=== PATIENT | male | born 1955 | race Caucasian/White ===

== ENCOUNTER 2021-10-15 19:40 | Inpatient (IN) | payer OTHER ==
[2021-10-15] MEDS ORDERED: AZITHROMYCIN 500 MG INJ IVPB ONE (20:33)
[2021-10-15] MEDS ORDERED: CEFTRIAXONE 1000 MG/VIAL ONE (20:33)
[2021-10-15] MEDS ORDERED: ALBUTEROL 2.5 MG/3 ML NEB SOL ONE (20:33)
[2021-10-15] MEDS ORDERED: NA CHLORIDE 0.9% 250 ML ONE (20:33)
[2021-10-15] MEDS ORDERED: METHYLPREDNISOLONE 125 MG INJ ONE (20:33)
[2021-10-15] MEDS ORDERED: NA CHLORIDE 0.9% 50 ML ONE (20:34)
[2021-10-15] MEDS ORDERED: FAMOTIDINE 20 MG/2 ML VIAL IV ONE (20:34)
[2021-10-15 20:42] LABS: Absolute Lymphocytes (CBC) 1.8 K/uL (0.7-4.9); Basophils % 0.5 % (0-1.3); Lymphocytes % 15.3 % (15.3-44.8); MPV 7.2 fL (7.6-11.3); RBC Red Blood Cell Count 4.71 M/uL (4.33-5.43)
[2021-10-15 20:51] LABS: Protime INR 1.17
--- NOTE | 2021-10-15 20:56 | RAD REPORT ---
EXAM DESCRIPTION: RAD - Chest Single View - 10/15/2021 8:35 pm CLINICAL HISTORY: COUGH COMPARISON: January 2008 TECHNIQUE: AP portable chest image was obtained 10/15/2021 8:35 pm . FINDINGS: Lung volumes are low. Interstitial pattern not clearly different from comparison. Minimal linear stranding in each base believed to be shallow inspiration atelectasis. Failure and volume over load are not seen. Heart and vasculature are normal. No measurable pleural effusion and no pneumothorax. No acute bony abnormality seen. No acute aortic findings suspected. IMPRESSION: No acute cardiopulmonary process.
[2021-10-15 21:02] LABS: ALT/SGPT 59 U/L (12-78); AST/SGOT 42 U/L (15-37); Albumin 3.3 g/dL (3.4-5.0); Alkaline Phosphatase 88 U/L (45-117); BUN Blood Urea Nitrogen 17 mg/dL (7-18); Bicarbonate 28 mmol/L (21-32); Bilirubin Direct 0.1 mg/dL (0-0.2); Bilirubin Total 0.4 mg/dL (0.2-1.0); Glucose Level 161 mg/dL (74-106); Magnesium 1.9 mg/dL (1.8-2.4); NT PRO-BNP 96 pg/mL (<125); Potassium 3.3 mmol/L (3.5-5.1); Protein, Total 7.5 g/dL (6.4-8.2); Sodium Level 138 mmol/L (136-145); Troponin (Emerg Dept Use Only) < 0.02 ng/mL (0.0-0.045)
--- NOTE | 2021-10-15 21:13 | ER ---
Nurse's Notes [facility] Name: Estrada Velasco Age: 66 yrs Sex: Male : 1955 Arrival Date: 10/15/2021 Time: 19:44 Bed 4 Private MD: Diagnosis: Acute bronchitis, unspecified;Acute bronchospasm;Obesity, unspecified;Hypoxemia;Hypokalemia Presentation: 10/15 20:07 Chief complaint: Patient states: he has had a cough x 1 week and hasn't been able to bb sleep x 3 days. Coronavirus screen: At this time, the client does not indicate any symptoms associated with coronavirus-19. Ebola Screen: No symptoms or risks identified at this time. Initial Sepsis Screen: Does the patient meet any 2 criteria? No. Patient's initial sepsis screen is negative. Does the patient have a suspected source of infection? No. Patient's initial sepsis screen is negative. Risk Assessment: Do you want to hurt yourself or someone else? Patient reports no desire to harm self or others. Onset of symptoms was September 2021. 20:07 Method Of Arrival: Ambulatory bb 20:07 Acuity: ELANA 3 bb Historical: - Allergies: 20:09 No Known Allergies; bb - Home Meds: 20:09 Hydrochlorothiazide Oral [Active]; losartan oral [Active]; bb - PMHx: 20:09 Hypertensive disorder; bb - PSHx: 20:09 foot surgery; elbow surgery; knee surgery; shoulder surgery; bb - Immunization history:: Adult Immunizations Client reports receiving the 2nd dose of the Covid vaccine. - Social history:: Smoking status: Patient denies any tobacco usage or history of. Patient uses alcohol, but reports only rare drinking. - Family history:: not pertinent. Screenin/02 19:58 Abuse screen: Denies threats or abuse. cc4 10/15 19:58 Nutritional screening: No deficits noted. Tuberculosis screening: No symptoms or risk cc4 factors identified. Fall Risk None identified. Assessment: 20:14 General: Appears in no apparent distress. uncomfortable, Behavior is calm, cooperative. as6 Pain: Complains of pain in rib. Neuro: Level of Consciousness is awake, alert, obeys commands, Oriented to person, place, time, situation. Cardiovascular: Capillary refill < 3 seconds Patient's skin is warm and dry. Respiratory: Reports cough that is hacking, persistent Airway is patent Trachea midline Respiratory effort is even, unlabored, Respiratory pattern is regular, symmetrical, Breath sounds with crackles bilaterally. Derm: Skin is intact, is healthy with good turgor. Vital Signs: 20:07 BP 141 / 66; Pulse 87; Resp 22 S; Temp 98.3(O); Pulse Ox 94% on R/A; Weight 127.01 kg bb (R); Height 6 ft. 0 in. (182.88 cm) (R); Pain 0/10; 21:00 BP 146 / 102; Pulse 88; Resp 20 S; Pulse Ox 98% on 2 lpm NC; as6 22:00 BP 141 / 94; Pulse 86; Resp 20 S; Pulse Ox 96% on 2 lpm NC; as6 23:00 BP 138 / 87; Pulse 85; Resp 18 S; Pulse Ox 100% on R/A; as6 12 00:23 BP 140 / 80; Pulse 83; Resp 20; Temp 98.6; Pulse Ox 95% on 2 lpm NC; cc4 10/15 20:07 Body Mass Index 37.97 (127.01 kg, 182.88 cm) bb ED Course: 10/15 19:44 Patient arrived in ED. es 19:55 Heron Handy MD is Attending Physician. jazmine 19:58 Placed in gown. Bed in low position. Call light in reach. Side rails up X2. Cardiac cc4 monitor on. Pulse ox on. NIBP on. 20:09 Triage completed. bb 20:09 Arm band placed on Patient placed in an exam room, on a stretcher, on media monitor, bb on pulse oximetry. Family accompanied patient. 20:25 Inserted saline lock: 20 gauge in right antecubital area, using aseptic technique. lt3 20:30 COVID swab sent to lab. Flu and/or RSV swab sent to lab. lt3 20:32 Initial lab(s) drawn, by mo, sent to lab. lt3 20:43 EKG done, by ED staff, reviewed by Heron Handy MD. lt3 21:00 Inserted saline lock: 18 gauge in left antecubital area, using aseptic technique. as6 21:10 Jesus Romero MD is Hospitalizing Provider. jazmine 21:35 Second set of blood cultures drawn by mo. lt3 23:24 Cadence Walsh, RN is Primary Nurse. cc4 23:28 Respiratory Syncytial Virus Ag Sent. cc4 23:28 Influenza Screen (A Sent. cc4 23:28 RSV Sent. cc4 23:28 Influenza Screen (a \\T\\ B) Sent. cc4 23:28 SARS-COV-2 RT PCR (Document "Date of Onset" if Symptomatic) Sent. cc4 23:28 Blood Culture Adult (2) Sent. cc4 23:28 D-Dimer Sent. cc4 23:28 Basic Metabolic Panel Sent. cc4 23:28 XRAY Chest (1 view) Sent. cc4 23:28 Troponin (emerg Dept Use Only) Sent. cc4 23:28 PT-INR Sent. cc4 23:28 NT PRO-BNP Sent. cc4 23:28 Magnesium Sent. cc4 23:28 LFT's Sent. cc4 23:28 CBC with Diff Sent. cc4 12 00:23 No provider procedures requiring assistance completed. cc4 00:23 Patient admitted, IV remains in place. cc4 00:45 Assist provider with bone marrow aspiration. Patient admitted, IV remains in place. as6 00:50 CT Chest For PE Angio Sent. cc4 Administered Medications: 10/15 20:50 Drug: SOLU-Medrol (methylPrednisoLONE) 125 mg Route: IVP; Site: right antecubital; as6 10/16 00:48 Follow up: Response: No adverse reaction as6 10/15 20:50 Drug: Albuterol - atroVENT (ipratropium) (3:1) (2.5 mg - 0.5 mg) 3 ml Route: Nebulizer; as6 10/16 00:49 Follow up: Response: No adverse reaction 10/15 20:50 Drug: Rocephin (cefTRIAXone) 1 grams Route: IV; Rate: per protocol; Site: right as antecubital; 10/16 00:49 Follow up: Response: No adverse reaction; IV Status: Completed infusion; IV Intake: [id number] 10/15 20:50 Drug: Zithromax (azithromycin) 500 mg Route: IVPB; Infused Over: 1 hrs; Site: right as6 antecubital; 10/16 00:49 Follow up: Response: No adverse reaction; IV Status: Completed infusion; IV Intake: as6 250ml 10/15 20:50 Drug: Pepcid (famotidine) 20 mg Route: IVP; Site: right antecubital; 10/16 00:48 Follow up: Response: No adverse reaction 10/15 22:20 Drug: Decadron - Dexamethasone 10 mg Route: IVP; Site: left antecubital; 10/16 00:48 Follow up: Response: No adverse reaction 10/15 22:20 Drug: Magnesium Sulfate 2 grams Route: IVPB; Infused Over: 2 hrs; Site: right as6 antecubital; 10/16 00:23 Follow up: Urine output 400 ml; Response: No adverse reaction cc4 00:47 Follow up: Response: No adverse reaction; IV Status: Completed infusion; IV Intake: as6 100ml 00:49 Follow up: IV Status: Completed infusion; IV Intake: 100ml cc4 10/15 22:20 Drug: Tussionex Pennkinetic ER (chlorpheniramine-hydrocodone) Suspension 5 ml Route: PO;10/16 00:23 Follow up: Response: No adverse reaction; Other cc4 00:47 Follow up: Response: No adverse reaction 10/15 22:20 Drug: NS 0.9% with KCl 20 mEq/L 1000 ml Route: IV; Rate: 125 ml/hr; Site: left [facility] antecubital; 10/16 00:00 Follow up: Response: No adverse reaction; IV Status: Completed infusion; IV Intake: [id number] 00:23 Follow up: Response: No adverse reaction; IV Intake: 125ml cc4 10/15 22:20 Drug: Potassium Effervescent Tablet 25 mEq Route: PO; 10/16 00:23 Follow up: Response: No adverse reaction cc4 Intake: 00:00 IV: 50ml; Total: 50ml. as6 00:23 IV: 125ml; Total: 175ml. cc4 00:47 IV: 100ml; Total: 275ml. as6 00:49 IV: 250ml; Total: 525ml. as6 00:49 IV: 100ml; Total: 625ml. cc4 00:49 IV: 50ml; Total: 675ml. as6 Output: 00:23 Urine: 400ml; Total: 400ml. cc4 Outcome: 10/15 21:12 Decision to Hospitalize by Provider. jazmine 10/16 00:45 Admitted to Tele accompanied by tech, via stretcher, room 429, with oxygen, with chart. as6 Condition: stable 00:45 Patient left the ED. as6 Signatures: Heron Handy MD MD cha Salyer, Edna es Ballard, Brenda, RN RN bb Cadence Walsh RN RN cc4 Scooter Bhatt RN RN as6 Isatu Ramírez lt3 Corrections: (The following items were deleted from the chart) 10/15 20:32 20:32 Inserted saline lock: 20 gauge in right antecubital area, using aseptic lt3 technique. lt3
--- NOTE | 2021-10-15 21:14 | EDPHYS ---
Physician Documentation [facility] Name: Estrada Velasco Age: 66 yrs Sex: Male : 1955 Arrival Date: 10/15/2021 Time: 19:44 Bed 4 Private MD: ED Physician Heron Handy HPI: 10/15 20:03 This 66 yrs old Male presents to ER via Unassigned with complaints of Cough. jazmine 20:03 The patient or guardian reports airway noise, cough, that is constant, difficulty jazmine breathing. Onset: The symptoms/episode began/occurred 2 day(s) ago. Severity of symptoms: At their worst the symptoms were moderate, in the emergency department the symptoms have improved, mildly. Modifying factors: The symptoms are alleviated by nothing, the symptoms are aggravated by exertion. Associated signs and symptoms: The patient has no apparent associated signs or symptoms. The patient has not experienced similar symptoms in the past. Historical: - Allergies: 20:09 No Known Allergies; bb - Home Meds: 20:09 Hydrochlorothiazide Oral [Active]; losartan oral [Active]; bb - PMHx: 20:09 Hypertensive disorder; bb - PSHx: 20:09 foot surgery; elbow surgery; knee surgery; shoulder surgery; bb - Immunization history:: Adult Immunizations Client reports receiving the 2nd dose of the Covid vaccine. - Social history:: Smoking status: Patient denies any tobacco usage or history of. Patient uses alcohol, but reports only rare drinking. - Family history:: not pertinent. ROS: 20:04 Constitutional: Negative for fever, chills, and weight loss, Eyes: Negative for injury, jazmine pain, redness, and discharge, ENT: Negative for injury, pain, and discharge, Neck: Negative for injury, pain, and swelling, Cardiovascular: Negative for chest pain, palpitations, and edema, Abdomen/GI: Negative for abdominal pain, nausea, vomiting, diarrhea, and constipation, Back: Negative for injury and pain, : Negative for injury, bleeding, discharge, and swelling, MS/Extremity: Negative for injury and deformity, Skin: Negative for injury, rash, and discoloration, Neuro: Negative for headache, weakness, numbness, tingling, and seizure, Psych: Negative for depression, anxiety, suicide ideation, homicidal ideation, and hallucinations, Allergy/Immunology: Negative for hives, rash, and allergies, Endocrine: Negative for neck swelling, polydipsia, polyuria, polyphagia, and marked weight changes, Hematologic/Lymphatic: Negative for swollen nodes, abnormal bleeding, and unusual bruising. 20:04 Respiratory: Positive for dyspnea on exertion, shortness of breath, wheezing, inspiratory, expiratory. Exam: 20:04 Constitutional: This is a well developed, well nourished patient who is awake, alert, jamzine and in no acute distress. Head/Face: Normocephalic, atraumatic. Eyes: Pupils equal round and reactive to light, extra-ocular motions intact. Lids and lashes normal. Conjunctiva and sclera are non-icteric and not injected. Cornea within normal limits. Periorbital areas with no swelling, redness, or edema. ENT: Nares patent. No nasal discharge, no septal abnormalities noted. Tympanic membranes are normal and external auditory canals are clear. Oropharynx with no redness, swelling, or masses, exudates, or evidence of obstruction, uvula midline. Mucous membranes moist. Neck: Trachea midline, no thyromegaly or masses palpated, and no cervical lymphadenopathy. Supple, full range of motion without nuchal rigidity, or vertebral point tenderness. No Meningismus. Chest/axilla: Normal chest wall appearance and motion. Nontender with no deformity. No lesions are appreciated. Cardiovascular: Regular rate and rhythm with a normal S1 and S2. No gallops, murmurs, or rubs. Normal PMI, no JVD. No pulse deficits. Abdomen/GI: Soft, non-tender, with normal bowel sounds. No distension or tympany. No guarding or rebound. No evidence of tenderness throughout. Back: No spinal tenderness. No costovertebral tenderness. Full range of motion. Male : Normal genitalia with no discharge or lesions. Skin: Warm, dry with normal turgor. Normal color with no rashes, no lesions, and no evidence of cellulitis. MS/ Extremity: Pulses equal, no cyanosis. Neurovascular intact. Full, normal range of motion. Neuro: Awake and alert, GCS 15, oriented to person, place, time, and situation. Cranial nerves II-XII grossly intact. Motor strength 5/5 in all extremities. Sensory grossly intact. Cerebellar exam normal. Normal gait. Psych: Awake, alert, with orientation to person, place and time. Behavior, mood, and affect are within normal limits. 20:04 Respiratory: mild respiratory distress is noted, Respirations: labored breathing, that is mild, Breath sounds: bronchial sounds, decreased breath sounds, that are mild, rhonchi, that are mild, stridor, that is mild, + upper airway congestion. wheezing: inspiratory expiratory that is moderate, is heard diffusely. 21:16 ECG was reviewed by the Attending Physician. jazmine Vital Signs: 20:07 BP 141 / 66; Pulse 87; Resp 22 S; Temp 98.3(O); Pulse Ox 94% on R/A; Weight 127.01 kg bb (R); Height 6 ft. 0 in. (182.88 cm) (R); Pain 0/10; 21:00 BP 146 / 102; Pulse 88; Resp 20 S; Pulse Ox 98% on 2 lpm NC; as6 22:00 BP 141 / 94; Pulse 86; Resp 20 S; Pulse Ox 96% on 2 lpm NC; as6 23:00 BP 138 / 87; Pulse 85; Resp 18 S; Pulse Ox 100% on R/A; as6 10/16 00:23 BP 140 / 80; Pulse 83; Resp 20; Temp 98.6; Pulse Ox 95% on 2 lpm NC; cc4 10/15 20:07 Body Mass Index 37.97 (127.01 kg, 182.88 cm) bb MDM: 10/15 19:55 Patient medically screened. jazmine 20:05 Differential diagnosis: asthma, Bronchitis CHF exacerbation, Chronic Obstructive jazmine Pulmonary Disease pneumonia, pulmonary edema, Pulmonary Embolism reactive airway disease, Sepsis Unstable Angina. Antibiotic administration: Rocephin and Zithromax given. The patient's Wells Deep Vein Thrombosis Score was calculated as follows: Heart Rate >100 BPM (1.5 Pts) Total Score: 0-2 Pts- Low Risk. Differential Diagnosis: Bronchitis Influenza Upper Respiratory Infection Pharyngitis Viral Syndrome Pneumonia. The patient's pulmonary embolism risk score was calculated as follows: Total Score: 0-2 points. This patient was found to be at low risk for a pulmonary embolism by using the Well's assessment criteria. Immunization status: Influenza vaccine: within last 5 years. Data reviewed: vital signs, nurses notes, lab test result(s), EKG, radiologic studies, plain films. Data interpreted: teletypesetter monitor: rate is 65 beats/min, rhythm is regular, Pulse oximetry: on room air is 95 %. Test interpretation: by ED physician or midlevel provider: ECG, plain radiologic studies. Counseling: I had a detailed discussion with the patient and/or guardian regarding: the historical points, exam findings, and any diagnostic results supporting the discharge/admit diagnosis, radiology results, the need for outpatient follow up, the need for further work-up and treatment in the hospital. 10/15 20:03 Order name: Basic Metabolic Panel [facility] 10/15 20:03 Order name: CBC with Diff [facility] 10/15 20:03 Order name: LFT's [facility] 10/15 20:03 Order name: Magnesium [facility] 10/15 20:03 Order name: NT PRO-BNP [facility] 10/15 20:03 Order name: PT-INR [facility] 10/15 20:03 Order name: Troponin (emerg Dept Use Only) [facility] 10/15 20:03 Order name: D-Dimer [facility] 10/15 20:03 Order name: Blood Culture Adult (2) [facility] 10/15 20:03 Order name: SARS-COV-2 RT PCR (Document "Date of Onset" if Symptomatic) [facility] 10/15 20:03 Order name: Influenza Screen (a \\T\\ B) [facility] 10/15 20:03 Order name: RSV [facility] 10/15 20:38 Order name: Respiratory Syncytial Virus Ag [facility] 10/15 20:41 Order name: Influenza Screen (A [facility] 10/15 20:03 Order name: XRAY Chest (1 view) [facility] 10/15 20:44 Order name: CBC with Automated Diff; Complete Time: 20:47 [facility] 10/15 20:57 Order name: Protime (+INR); Complete Time: 21:02 [facility] 10/15 20:57 Order name: D-Dimer; Complete Time: 21:02 [facility] 10/15 20:57 Order name: RAD; Complete Time: 21:02 [facility] 10/15 21:02 Order name: CT Chest For PE Angio [facility] 10/15 21:03 Order name: Basic Metabolic Panel; Complete Time: 21:18 [facility] 10/15 21:03 Order name: Liver (Hepatic) Function; Complete Time: 21:18 [facility] 10/15 21:03 Order name: Troponin (Emerg Dept Use Only); Complete Time: 21:18 [facility] 10/15 21:03 Order name: NT PRO-BNP; Complete Time: 21:18 [facility] 10/15 21:03 Order name: Magnesium; Complete Time: 21:18 [facility] 10/15 21:24 Order name: COVID-19/FLU A+B/RSV; Complete Time: 22:00 [facility] 10/15 20:03 Order name: EKG; Complete Time: 20:04 [facility] 10/15 20:03 Order name: Cardiac monitoring; Complete Time: 20:32 [facility] 10/15 20:03 Order name: EKG - Nurse/Tech; Complete Time: 20:46 [facility] 10/15 20:03 Order name: IV Saline Lock; Complete Time: 20:32 [facility] 10/15 20:03 Order name: Labs collected and sent; Complete Time: 20:33 [facility] 10/15 20:03 Order name: O2 Per Protocol; Complete Time: 20:33 [facility] 10/15 20:03 Order name: O2 Sat Monitoring; Complete Time: 20:33 [facility] EC:16 Rate is 82 beats/min. Rhythm is regular. QRS Rose is Normal. MI interval is normal. QRS jazmine interval is normal. QT interval is normal. No Q waves. T waves are Normal. No ST changes noted. Clinical impression: NSR w/ Non-specific ST/T Changes and No evidence of ischemia. Interpreted by me. Reviewed by me. Administered Medications: 20:50 Drug: SOLU-Medrol (methylPrednisoLONE) 125 mg Route: IVP; Site: right antecubital; as6 10/16 00:48 Follow up: Response: No adverse reaction as10/15 20:50 Drug: Albuterol - atroVENT (ipratropium) (3:1) (2.5 mg - 0.5 mg) 3 ml Route: Nebulizer; as6 10/16 00:49 Follow up: Response: No adverse reaction as10/15 20:50 Drug: Rocephin (cefTRIAXone) 1 grams Route: IV; Rate: per protocol; Site: right [facility] antecubital; 10/16 00:49 Follow up: Response: No adverse reaction; IV Status: Completed infusion; IV Intake: [id number] 10/15 20:50 Drug: Zithromax (azithromycin) 500 mg Route: IVPB; Infused Over: 1 hrs; Site: right [facility] antecubital; 10/16 00:49 Follow up: Response: No adverse reaction; IV Status: Completed infusion; IV Intake: as6 250ml 10/15 20:50 Drug: Pepcid (famotidine) 20 mg Route: IVP; Site: right antecubital; 6 10/16 00:48 Follow up: Response: No adverse reaction as6 10/15 22:20 Drug: Decadron - Dexamethasone 10 mg Route: IVP; Site: left antecubital; 10/16 00:48 Follow up: Response: No adverse reaction 10/15 22:20 Drug: Magnesium Sulfate 2 grams Route: IVPB; Infused Over: 2 hrs; Site: right as6 antecubital; 10/16 00:23 Follow up: Urine output 400 ml; Response: No adverse reaction cc4 00:47 Follow up: Response: No adverse reaction; IV Status: Completed infusion; IV Intake: as6 100ml 00:49 Follow up: IV Status: Completed infusion; IV Intake: 100ml cc4 10/15 22:20 Drug: Tussionex Pennkinetic ER (chlorpheniramine-hydrocodone) Suspension 5 ml Route: PO;10/16 00:23 Follow up: Response: No adverse reaction; Other cc4 00:47 Follow up: Response: No adverse reaction 10/15 22:20 Drug: NS 0.9% with KCl 20 mEq/L 1000 ml Route: IV; Rate: 125 ml/hr; Site: left as6 antecubital; 10/16 00:00 Follow up: Response: No adverse reaction; IV Status: Completed infusion; IV Intake: [id number] 00:23 Follow up: Response: No adverse reaction; IV Intake: 125ml cc4 10/15 22:20 Drug: Potassium Effervescent Tablet 25 mEq Route: PO; 10/16 00:23 Follow up: Response: No adverse reaction cc4 Disposition Summary: 10/15/21 21:12 Hospitalization Ordered Hospitalization Status: Inpatient Admission jazmine Provider: Jesus Romero cha Location: Telemetry/MedSurg (Inpatient) jazmine Condition: Fair jazmine Problem: new jazmine Symptoms: have improved jazmine Bed/Room Type: Standard jazmine Room Assignment: 429(10/15/21 22:40) mw Diagnosis - Acute bronchitis, unspecified jazmine - Acute bronchospasm jazmine - Obesity, unspecified jazmine - Hypoxemia jazmine - Hypokalemia jazmine Forms: - Medication Reconciliation Form jazmine - SBAR form jazmine Signatures: Dispatcher [employer] EDMarysol Balderas RN RN Heron Montez MD MD cha Ballard, Brenda, RN RN bb Slawson, Ashby, RN RN as6 Cadence Walsh RN cc4 Corrections: (The following items were deleted from the chart) 10/15 22:40 21:12 jazmine alonzo
[2021-10-15 21:24] LABS: SARS-COV-2 RT PCR NEGATIVE (NEGATIVE)
[2021-10-15] MEDS ORDERED: dexAMETHasone 10 MG/ML VIAL ONE (21:59)
[2021-10-15] MEDS ORDERED: HYDROCODONE/CHLORPHEN 5 ML/OSYR ONE (21:59)
[2021-10-15] MEDS ORDERED: NA CHLORIDE 0.9% 1,000 ML ONE (22:00)
[2021-10-15] MEDS ORDERED: KCL 20 MEQ/100 mL IVPB 20 MEQ/100 ML BAG IV ONE (22:00)
[2021-10-15] MEDS ORDERED: Magnesium Sulfate 2gm IVPB 2 G/50 ML BAG IV ONE (22:00)
[2021-10-15] MEDS ORDERED: POTASSIUM 25 MEQ EFFERV TAB ONE (22:00)
--- NOTE | 2021-10-15 23:54 | P.HP ---
Certification for Inpatient Patient admitted to: Observation With expected LOS: <2 Midnights Patient will require the following post-hospital care: None Practitioner: I am a practitioner with admitting privileges, knowledge of patient current condition, hospital course, and medical plan of care. Services: Services provided to patient in accordance with Admission requirements found in Title 42 Section 412.3 of the Code of Federal Regulations <Efra Wasserman Margaret - Last Filed: 10/15/21 23:48> Patient History Date of Service: 10/15/21 Primary Care Provider: Faustino Reason for admission: acute bronchitis History of Present Illness: Mr. Velasco is a 66 yo M with HTN who presents with 5 days of deep cough, SOB, and wheezing. He went to the doctor on Monday and received prednisone, amoxicillin and albuterol inhaler, but he continues to feel worse. No relief with antitussives or humidifer. He is starting to have trouble eating, decreased fluid intake and nausea. Denies fever, vomiting. WBC 11.8 DD 525 K 3.3 GFR 62 Glu 161 CTPE IMPRESSION: No CTA evidence of acute PE. No pulmonary consolidation or pleural effusions. Mild bronchial wall thickening. CXR IMPRESSION: No acute cardiopulmonary process. - Past Medical/Surgical History Diabetic: No -: HTN -: foot surgery -: elbow surgery -: shoulder surgery -: hernia repair -: tonsillectomy - Family History Family History: Reviewed- Non-Contributory - Social History Smoking Status: Never smoker Alcohol use: No CD- Drugs: No Caffeine use: Yes Place of Residence: Home <LuxEfra Robles - Last Filed: 10/15/21 23:48> Date of Service: 10/15/21 <Jesus Romero - Last Filed: 10/17/21 15:22> Review of Systems 10-point ROS is otherwise unremarkable General: Unremarkable Eyes: Unremarkable ENT: Unremarkable Respiratory: Cough, Shortness of Breath, Wheezing Cardiovascular: Unremarkable Gastrointestinal: Nausea Genitourinary: Unremarkable Musculoskeletal: Unremarkable Integumentary: Unremarkable Neurological: Unremarkable Lymphatics: Unremarkable <Efra Wasserman - Last Filed: 10/15/21 23:48> Physical Examination - Physical Exam General: Alert, In no apparent distress HEENT: Atraumatic, PERRLA, Mucous membr. moist/pink, EOMI, Sclerae nonicteric Neck: Supple, 2+ carotid pulse no bruit, No LAD, Without JVD or thyroid abnormality Respiratory: Normal air movement, Expiratory wheezes Cardiovascular: Regular rate/rhythm, Normal S1 S2 Gastrointestinal: Normal bowel sounds, No tenderness Musculoskeletal: No tenderness Integumentary: No rashes Neurological: Normal speech, Normal strength at 5/5 x4 extr, Normal tone, Normal affect Lymphatics: No axilla or inguinal lymphadenopathy - Studies Laboratory Data (last 24 hrs) 10/15/21 20:25: PT 13.5 H, INR 1.17 10/15/21 20:25: WBC 11.80 H, Hgb 14.3, Hct 42.0, Plt Count 302 10/15/21 20:25: Sodium 138, Potassium 3.3 L, BUN 17, Creatinine 1.19, Glucose 161 H, Magnesium 1.9, Total Bilirubin 0.4, AST 42 H, ALT 59, Alkaline Phosphatase 88 <Efra Wasserman - Last Filed: 10/15/21 23:48> - Studies Microbiology Data (last 24 hrs): 10/16/21 03:45 Sputum Sputum Gram Stain - Final <Jesus Romero - Last Filed: 10/17/21 15:22> Assessment and Plan - Problems (Diagnosis) (1) HTN (hypertension) Current Visit: Yes Status: Chronic Qualifiers: Hypertension type: primary hypertension Qualified Code(s): I10 - Essential (primary) hypertension (2) Acute bronchitis Current Visit: Yes Status: Acute Qualifiers: Bronchitis organism: unspecified organism Qualified Code(s): J20.9 - Acute bronchitis, unspecified (3) Bronchospasm Current Visit: Yes Status: Acute - Plan continue IV antibiotics, IV steroids, breathing treatments, O2 as needed continue antitussives potassium replacement reconcile and continue home medications DVT ppx Discharge Plan: Home Plan to discharge in: 24 Hours - Advance Directives Does patient have a Living Will: No Does patient have a Durable POA for Healthcare: No - Code Status/Comfort Care Code Status Assessed: Yes (full code ) Critical Care: No Time Spent Managing Pts Care (In Minutes): 70 <Efra Wasserman - Last Filed: 10/15/21 23:48> - Problems (Diagnosis) (1) Asthma exacerbation Current Visit: Yes Status: Acute (2) Hypoxemia Current Visit: Yes Status: Acute (3) Persistent cough Current Visit: Yes Status: Acute <Jesus Romero - Last Filed: 10/17/21 15:22> Date of Service: 10/15/21 Subjective Agree with the HPI as mentioned above: Patient still hypoxic and coughing. Patient is not feeling any better. Continue with current plan of care. Review of Systems 10-point ROS is otherwise unremarkable Physical Examination - Vital Signs Reviewed - Physical Exam General: Alert, In no apparent distress Respiratory: Expiratory wheezes Cardiovascular: Regular rate/rhythm, Normal S1 S2, No murmurs Gastrointestinal: Normal bowel sounds, Soft and benign, Non-distended, No tenderness Musculoskeletal: No clubbing, No swelling, No tenderness Neurological: Sensation intact, Cranial nerves 3-12 intact Assessment & Plan - Problems (Diagnosis) (1) Asthma exacerbation Current Visit: Yes Status: Acute (2) Hypoxemia Current Visit: Yes Status: Acute (3) Persistent cough Current Visit: Yes Status: Acute - Plan Continue with plan of care as mentioned below: 1. Continue with albuterol and Atrovent nebs 2. Continue with IV steroids 3. Outpatient pulmonary function testing/spirometry 4. Pulmonary follow-up if symptoms do not improve 5. Room air O2 sats 6. Repeat chest x-ray 7. Peak flows as needed 8. GI and DVT prophylaxis <Jesus Romero - Last Filed: 10/17/21 15:22>
[2021-10-16] MEDS ORDERED: HYDROCODONE/CHLORPHEN 5 ML/OSYR PO PRN (01:13)
[2021-10-16] MEDS ORDERED: ONDANSETRON 4 MG/2 ML VIAL IV PRN (01:13)
[2021-10-16] MEDS ORDERED: IPRATROPIUM BROM 0.5MG/2.5ML NEB PRN (01:13)
[2021-10-16] MEDS ORDERED: ALBUTEROL 2.5 MG/3 ML NEB SOL NEB PRN (01:13)
[2021-10-16] MEDS ORDERED: ACETAMINOPHEN 500 MG TAB PO PRN (01:13)
[2021-10-16] MEDS: GUAIFENESIN/CODEINE 5ML UCUP PO PRN ×4 (01:37→19:40)
[2021-10-16 02:16] VITALS: BMI 38.0
[2021-10-16] MEDS: METHYLPREDNISOLONE 40 MG INJ IV SCH ×4 (03:46→20:10)
[2021-10-16 05:26] LABS: Absolute Lymphocytes (CBC) 1.4 K/uL (0.7-4.9); Basophils % 0.2 % (0-1.3); Lymphocytes % 12.1 % (15.3-44.8); MPV 7.8 fL (7.6-11.3); RBC Red Blood Cell Count 4.72 M/uL (4.33-5.43)
[2021-10-16 05:53] LABS: Albumin 3.4 g/dL (3.4-5.0); Bilirubin Total 0.5 mg/dL (0.2-1.0); Magnesium 2.2 mg/dL (1.8-2.4); Phosphorus 3.1 mg/dL (2.5-4.9); Potassium 3.9 mmol/L (3.5-5.1); Protein, Total 7.7 g/dL (6.4-8.2); Thyroid Stimulating Hormone 0.563 uIU/mL (0.360-3.740)
[2021-10-16 06:58] LABS: Blood Morphology Comment NOT SEEN (NOT SEEN); Platelet Estimate ADEQ; White Blood Cell Scan OK (OK)
[2021-10-16] MEDS: INSULIN -REGULAR HUMAN 50 UNIT/0.5 ML ML SQ SCH ×4 (07:30→22:58)
[2021-10-16] MEDS ORDERED: CEFTRIAXONE 1000 MG/VIAL ONE ×2 (07:41→20:06)
[2021-10-16] MEDS: LOSARTAN POTASSIUM 50 MG TABLET PO SCH (08:45)
[2021-10-16] MEDS: hydroCHLOROthiazide 25 MG TAB PO SCH (08:45)
[2021-10-16] MEDS: ENOXAPARIN 40 MG/0.4 ML SQ SCH (08:46)
[2021-10-16] MEDS ORDERED: POTASSIUM CL SA 10 MEQ TAB PO ONE (09:21)
[2021-10-16] MEDS: BUDESONIDE 0.5 MG/2 ML NEB NEB SCH ×2 (11:50→19:45)
[2021-10-16] MEDS: IPRATROPIUM BROM 0.5MG/2.5ML NEB SCH ×3 (11:50→19:45)
[2021-10-16] MEDS: ALBUTEROL 2.5 MG/3 ML NEB SOL NEB SCH ×3 (11:50→19:45)
[2021-10-16] MEDS ORDERED: INFLUENZA VACCINE (for 6+ mo) 0.5 ML DOSE IMVAC ONE (12:00)
--- NOTE | 2021-10-16 12:36 | EKG ---
Test Date: 2021-10-15 Test Time: 20:43:36 Development Officer: LMT MEASUREMENT RESULTS: Intervals: Rate: 82 [place]: 148 QRSD: 86 QT: 370 QTc: 432 [place]: P: 26 [place]: 148 QRS: 47 T: 53 INTERPRETIVE STATEMENTS: Normal sinus rhythm Low voltage QRS Borderline ECG Compared to ECG 12/23/2010 14:26:58 Low QRS voltage now present Electronically Signed On 10-16-21 12:35:34 METALLURGIST PROCESS by Evangelista Do
[2021-10-16] MEDS: MORPHINE 2 MG/ML SYR IV PRN (14:11)
[2021-10-16] MEDS: CEFTRIAXONE 1,000 MG in NA CHLORIDE 0.9% 50 ML IVPB SCH (20:00)
[2021-10-16] MEDS: AZITHROMYCIN IV 500 MG in NA CHLORIDE 0.9% 250 ML IVPB SCH (20:10)
[2021-10-16] MEDS ORDERED: NA CHLORIDE 0.9% 100 ML ONE (21:22)
[2021-10-16] MEDS ORDERED: INSULIN -REGULAR HUMAN 50 UNIT/0.5 ML ML ONE (21:56)
[2021-10-17] MEDS: GUAIFENESIN/CODEINE 5ML UCUP PO PRN ×4 (00:49→17:20)
[2021-10-17] MEDS: METHYLPREDNISOLONE 40 MG INJ IV SCH ×4 (00:49→17:19)
[2021-10-17] MEDS: ALBUTEROL 2.5 MG/3 ML NEB SOL NEB SCH ×4 (01:30→20:25)
[2021-10-17] MEDS: IPRATROPIUM BROM 0.5MG/2.5ML NEB SCH ×4 (01:30→20:25)
[2021-10-17] MEDS: MORPHINE 2 MG/ML SYR IV PRN ×2 (01:50→14:36)
[2021-10-17] MEDS ORDERED: BENZONATATE 100 MG CAP PO ONE (04:50)
[2021-10-17] MEDS: BENZONATATE 100 MG CAP PO PRN ×2 (04:54→14:36)
[2021-10-17] MEDS: INSULIN -REGULAR HUMAN 50 UNIT/0.5 ML ML SQ SCH ×4 (07:30→21:28)
[2021-10-17] MEDS: BUDESONIDE 0.5 MG/2 ML NEB NEB SCH ×2 (08:25→20:25)
[2021-10-17] MEDS: AZITHROMYCIN IV 500 MG in NA CHLORIDE 0.9% 250 ML IVPB SCH (09:14)
[2021-10-17] MEDS: hydroCHLOROthiazide 25 MG TAB PO SCH (09:16)
[2021-10-17] MEDS: ENOXAPARIN 40 MG/0.4 ML SQ SCH (09:17)
[2021-10-17] MEDS: LOSARTAN POTASSIUM 50 MG TABLET PO SCH (09:18)
--- NOTE | 2021-10-17 09:21 | RAD REPORT ---
EXAM DESCRIPTION: CT - Chest For Pe Angio - 10/16/2021 6:31 am CLINICAL HISTORY: Congestion;Cough. COMPARISON: None. TECHNIQUE: CTA of the chest was performed following intravenous administration of iodinated contrast . Axial soft tissue and lung window, and coronal and sagittal soft tissue window reconstructions were created and sent to PACS. 3D postprocessing was performed on an independent workstation, with images sent to PACS for subsequen t review. This exam was performed according to our departmental dose-optimization program, which includes autom ated exposure control, adjustment of the mA and/or kV according to patient size and/or use of iterati ve reconstruction technique. FINDINGS: Vascular: The pulmonary arteries are adequately opacified to the lobar level. Slightly sub optimal evaluation of some of the segmental and submental branches due to streak artifact from motion degradation. No CT evidence of acute pulmonary thromboembolism. No evidence of aortic aneurysm or di ssection. Lungs and pleura: Mild motion degradation. Mild diffuse bronchial wall thickening. No pulmonary conso lidation. No pleural effusion. No pneumothorax. Mediastinum and neck: No mediastinal lymphadenopathy by CT size criteria. Unremarkable appearance of the thyroid gland. Cardiac: No cardiomegaly or pericardial effusion. Abdomen: No significant upper abdominal abnormality identified. Musculoskeletal: No concerning osseous abnormality. IMPRESSION: 1. No CTA evidence of acute pulmonary thromboembolism, within the limitation of mild m otion degradation. 2. No pulmonary consolidation or pleural effusions. Mild bronchial wall thickening. Electronically signed by: Faith De León MD 10/15/2021 10:47 PM SPINNER OPERATOR Due to temporary technical issues with the PACS/Fluency reporting system, reports are being signed by the in house radiologists without review as a courtesy to insure prompt reporting. The interpreting radiologist is fully responsible for the content of the report.
[2021-10-17] MEDS ORDERED: CEFTRIAXONE 1000 MG/VIAL ONE (10:53)
[2021-10-17] MEDS ORDERED: NA CHLORIDE 0.9% 50 ML ONE (10:57)
[2021-10-17] MEDS: CEFTRIAXONE 1,000 MG in NA CHLORIDE 0.9% 50 ML IVPB SCH (11:10)
[2021-10-17] MEDS ORDERED: TEMAZEPAM 15 MG CAP PO PRN (11:28)
[2021-10-17] MEDS ORDERED: METFORMIN HCL 500 MG TAB PO ONE (12:00)
[2021-10-17] MEDS ORDERED: INFLUENZA VACCINE (for 6+ mo) 0.5 ML DOSE IMVAC ONE (12:00)
--- NOTE | 2021-10-17 14:10 | RAD REPORT ---
EXAM DESCRIPTION: RAD - Chest Single View - 10/17/2021 2:02 pm CLINICAL HISTORY: pneumonia COMPARISON: October 15 TECHNIQUE: AP portable chest image was obtained 10/17/2021 2:02 pm . FINDINGS: No new mass consolidation. Lung volumes are low which accentuates interstitial pattern. Pe ribronchial thickening is seen. Stranding in the lateral left base is favored to be atelectasis. Hear t and vasculature are normal. No measurable pleural effusion and no pneumothorax. No acute bony abnor mality seen. No acute aortic findings suspected. IMPRESSION: No new mass or consolidation. Interstitial pattern and bronchial wall thickening favor bronchitis or seminal lower viral infiltrati ve process.
--- NOTE | 2021-10-17 15:21 | P.PN ---
Date of Service: 10/17/21 Subjective Patient continues to have persistent coughing. Will get pulmonary consultation. Review of Systems 10-point ROS is otherwise unremarkable Physical Examination - Vital Signs Reviewed - Physical Exam General: Alert, In no apparent distress Respiratory: Expiratory wheezes Cardiovascular: Regular rate/rhythm, Normal S1 S2, No murmurs Gastrointestinal: Normal bowel sounds, Soft and benign, Non-distended, No tenderness Musculoskeletal: No clubbing, No swelling, No tenderness Neurological: Sensation intact, Cranial nerves 3-12 intact - Studies Microbiology Data (last 24 hrs): 10/16/21 03:45 Sputum Sputum Gram Stain - Final Medications List Reviewed: Yes Assessment & Plan - Problems (Diagnosis) (1) Asthma exacerbation Current Visit: Yes Status: Acute (2) Hypoxemia Current Visit: Yes Status: Acute (3) Persistent cough Current Visit: Yes Status: Acute - Plan Continue with plan of care as mentioned below: 1. Continue with albuterol and Atrovent nebs 2. Continue with IV steroids 3. Outpatient pulmonary function testing/spirometry 4. Pulmonary follow-up if symptoms do not improve 5. Room air O2 sats are improved; currently at 94% 6. Repeat chest x-ray 7. May need to check peak flows 8. GI and DVT prophylaxis
--- NOTE | 2021-10-17 15:21 | P.PN ---
Subjective Date of Service: 10/16/21 Patient still hypoxic and coughing. Patient is not feeling any better. Continue with current plan of care. Review of Systems 10-point ROS is otherwise unremarkable Physical Examination - Vital Signs Temperature: 98.4 F Blood Pressure: 120/53 Pulse: 89 Respirations: 16 Pulse Ox (%): 96 - Physical Exam General: Alert, In no apparent distress Respiratory: Expiratory wheezes Cardiovascular: Regular rate/rhythm, Normal S1 S2, No murmurs Gastrointestinal: Normal bowel sounds, Soft and benign, Non-distended, No tenderness Musculoskeletal: No clubbing, No swelling, No tenderness Neurological: Sensation intact, Cranial nerves 3-12 intact - Studies Microbiology Data (last 24 hrs): 10/16/21 03:45 Sputum Sputum Gram Stain - Final Medications List Reviewed: Yes Assessment & Plan - Problems (Diagnosis) (1) Asthma exacerbation Current Visit: Yes Status: Acute (2) Hypoxemia Current Visit: Yes Status: Acute (3) Persistent cough Current Visit: Yes Status: Acute - Plan Plan: 1. Continue with albuterol and Atrovent nebs 2. Continue with IV steroids 3. Outpatient pulmonary function testing/spirometry 4. Pulmonary follow-up if symptoms do not improve 5. Room air O2 sats 6. Repeat chest x-ray 7. Peak flows as needed 8. GI and DVT prophylaxis Discharge Plan: Home Plan to discharge in: Greater than 2 days - Advance Directives Does patient have a Living Will: No Does patient have a Durable POA for Healthcare: No - Code Status/Comfort Care Code Status Assessed: Yes Code Status: Full Code Critical Care: No Time Spent Managing PTS Care (In Minutes): 35
[2021-10-18] MEDS: BENZONATATE 100 MG CAP PO PRN (00:30)
[2021-10-18] MEDS: METHYLPREDNISOLONE 40 MG INJ IV SCH ×2 (00:30→06:08)
[2021-10-18] MEDS: IPRATROPIUM BROM 0.5MG/2.5ML NEB SCH ×2 (01:50→08:11)
[2021-10-18] MEDS: ALBUTEROL 2.5 MG/3 ML NEB SOL NEB SCH ×2 (01:50→08:11)
[2021-10-18] MEDS: INSULIN -REGULAR HUMAN 50 UNIT/0.5 ML ML SQ SCH ×2 (07:30→11:30)
[2021-10-18] MEDS ORDERED: CEFTRIAXONE 1000 MG/VIAL ONE (07:58)
[2021-10-18] MEDS ORDERED: METFORMIN HCL 500 MG TAB PO SCH (08:00)
[2021-10-18] MEDS ORDERED: NA CHLORIDE 0.9% 50 ML ONE (08:07)
[2021-10-18] MEDS: BUDESONIDE 0.5 MG/2 ML NEB NEB SCH (08:11)
--- NOTE | 2021-10-18 08:55 | P.DS ---
Admission Date: 10/17/21 Discharge Date: 10/18/21 [facility] Provider: [facility] Disposition: ROUTINE DISCHARGE Discharge Condition: GOOD Reason for Admission: acute bronchitis Consultations: Pulmonary-Dr. Ashton Procedures: COVID: Negative Influenza: Negative RSV: Negative CT chest: COMPARISON: None. TECHNIQUE: CTA of the chest was performed following intravenous administration of iodinated contrast. Axial soft tissue and lung window, and coronal and sagittal soft tissue window reconstructions were created and sent to PACS. 3D postprocessing was performed on an independent workstation, with images sent to PACS for subsequent review. This exam was performed according to our departmental dose-optimization program, which includes automated exposure control, adjustment of the mA and/or kV according to patient size and/or use of iterative reconstruction technique. FINDINGS: Vascular: The pulmonary arteries are adequately opacified to the lobar level. Slightly suboptimal evaluation of some of the segmental and submental branches due to streak artifact from motion degradation. No CT evidence of acute pulmonary thromboembolism. No evidence of aortic aneurysm or dissection. Lungs and pleura: Mild motion degradation. Mild diffuse bronchial wall thickening. No pulmonary consolidation. No pleural effusion. No pneumothorax. Mediastinum and neck: No mediastinal lymphadenopathy by CT size criteria. Unremarkable appearance of the thyroid gland. Cardiac: No cardiomegaly or pericardial effusion. Abdomen: No significant upper abdominal abnormality identified. Musculoskeletal: No concerning osseous abnormality. IMPRESSION: 1. No CTA evidence of acute pulmonary thromboembolism, within the limitation of mild motion degradation. 2. No pulmonary consolidation or pleural effusions. Mild bronchial wall thickening. Follow up CXR: COMPARISON: October 15 TECHNIQUE: AP portable chest image was obtained 10/17/2021 2:02 pm . FINDINGS: No new mass consolidation. Lung volumes are low which accentuates interstitial pattern. Peribronchial thickening is seen. Stranding in the lateral left base is favored to be atelectasis. Heart and vasculature are normal. No measurable pleural effusion and no pneumothorax. No acute bony abnormality seen. No acute aortic findings suspected. IMPRESSION: No new mass or consolidation. Interstitial pattern and bronchial wall thickening favor bronchitis or seminal lower viral infiltrative process. Medical problem list: Dyspnea secondary to acute on chronic asthma Hypertension Hyperglycemia suspect diabetes mellitus type 2 Obesity, BMI 38 Brief History of Present Illness: 66-year-old male with history of hypertension presented with cough, shortness of breath and wheezing. Patient had seen his PCP. He was given prednisone, amoxicillin and inhaler. His symptoms did not improve. Patient presented to the emergency room. CT scan revealed no pulmonary embolism, consolidation. Patient admitted for further evaluation and treatment. Hospital Course: Patient presented with shortness of breath, and cough. Patient recently treated with prednisone and amoxicillin. Patient was admitted for further evaluation and treatment. CT scan revealed no pulmonary embolism or consolidation. Patient was negative for Covid, RSV. Sputum culture negative. Patient was seen and evaluated by pulmonology. Pulmonology suspects acute on chronic asthma. Patient condition has improved. At discharge patient will continue with prednisone 10 mg 1 pill twice daily for 7 days. Patient will continue with Adv air 1 puff twice daily. Albuterol and Atrovent will be arranged to continue 3 times a day as needed for shortness of breath. Recommend follow-up with pulmonology within 1 week to follow-up hospitalization and to further address his condition. Patient with hypertension. Blood pressure medication stable. At discharge patient will continue with losartan 50 mg daily and hydrochlorothiazide 25 mg daily. Recommend to maintain blood pressure less than 130/80. Further adjustment can be done by his PCP. Patient had elevated blood sugar. Hemoglobin A1c obtained to evaluate for diabetes mellitus type 2. This is pending at discharge. Patient was started on Metformin during the hospitalization.. At discharge patient will continue with Metformin 500 mg daily. Recommend follow-up with PCP to further monitor and address. Recommend to monitor blood sugars at least twice daily. Recommend to maintain blood sugar less than 140 fasting and less than 200 for meals. Further adjustment in medication may be required. This can be done with the help of his PCP. Vital Signs/Physical Exam: Temp Pulse Resp BP Pulse Ox 97.1 F 87 18 133/66 95 10/18/21 04:00 10/18/21 04:00 10/18/21 04:00 10/18/21 04:00 10/18/21 04:00 General: Alert, In no apparent distress, Oriented x3, Cooperative HEENT: Atraumatic Neck: Supple Respiratory: Other (Patient on room air. Mild wheezing noted) Cardiovascular: Normal pulses, Regular rate/rhythm Gastrointestinal: Normal bowel sounds, No ascites, No tenderness, No masses, No guarding Musculoskeletal: No warmth Integumentary: No tenderness/swelling, No erythema, No warmth, No cyanosis Neurological: Normal speech, Normal strength at 5/5 x4 extr, Normal tone Laboratory Data at Discharge: WBC 11.90 K/uL (4.3-10.9) H 10/16/21 04:41 Hgb 14.2 g/dL (13.6-17.9) 10/16/21 04:41 Hct 42.0 % (39.6-49.0) 10/16/21 04:41 Plt Count 297 K/uL (152-406) 10/16/21 04:41 PT 13.5 SECONDS (9.5-12.5) H 10/15/21 20:25 INR 1.17 10/15/21 20:25 Sodium 135 mmol/L (136-145) L 10/16/21 04:41 Potassium 3.9 mmol/L (3.5-5.1) 10/16/21 04:41 BUN 18 mg/dL (7-18) 10/16/21 04:41 Creatinine 1.26 mg/dL (0.55-1.3) 10/16/21 04:41 Glucose 183 mg/dL (74-106) H 10/16/21 04:41 Phosphorus 3.1 mg/dL (2.5-4.9) 10/16/21 04:41 Magnesium 2.2 mg/dL (1.8-2.4) 10/16/21 04:41 Total Bilirubin 0.5 mg/dL (0.2-1.0) 10/16/21 04:41 AST 42 U/L (15-37) H 10/16/21 04:41 ALT 57 U/L (12-78) 10/16/21 04:41 Alkaline Phosphatase 79 U/L (45-117) 10/16/21 04:41 Triglycerides 74 mg/dL (<150) 10/16/21 04:41 Cholesterol 174 mg/dL (<200) 10/16/21 04:41 HDL Cholesterol 38 mg/dL (40-60) L 10/16/21 04:41 Cholesterol/HDL Ratio 4.58 10/16/21 04:41 Home Medications: Losartan Potassium [Cozaar*] 50 mg PO DAILY 10/16/21 hydroCHLOROthiazide [Hydrochlorothiazide] 25 mg PO DAILY 10/16/21 Albuterol Neb [Proventil 0.083% Neb Soln] 2.5 mg NEB [id number] #60 amp 10/17/21 Benzonatate [Tessalon Perle*] 200 mg PO TID PRN #30 cap 10/17/21 Fluticasone/Salmeterol [Advair 250-50 Diskus] 1 each IH BID #1 disk.w.dev 10/17/21 Ipratropium Neb [Atrovent*] 0.5 mg NEB [id number] #60 amp 10/17/21 Metformin HCl 500 mg PO DAILY #30 tablet 10/17/21 Nebulizer Accessories [Aeroneb Go] 1 each MC DAILY #1 each 10/17/21 Nebulizer [Aeroneb Go Nebulizer] 1 each MC DAILY #1 each 10/17/21 hydroCHLOROthiazide [Hydrodiuril*] 25 mg PO DAILY #30 tab 10/17/21 predniSONE [Deltasone*] 10 mg PO BID #14 tab 10/18/21 New Medications: Fluticasone/Salmeterol [Advair 250-50 Diskus] 1 each IH BID #1 disk.w.dev Nebulizer Accessories [Aeroneb Go] 1 each MC DAILY #1 each Nebulizer [Aeroneb Go Nebulizer] 1 each MC DAILY #1 each Ipratropium Neb [Atrovent*] 0.5 mg NEB [id number] #60 amp predniSONE [Deltasone*] 10 mg PO BID #14 tab hydroCHLOROthiazide [Hydrodiuril*] 25 mg PO DAILY #30 tab Metformin HCl 500 mg PO DAILY #30 tablet Albuterol Neb [Proventil 0.083% Neb Soln] 2.5 mg NEB [id number] #60 amp Benzonatate [Tessalon Perle*] 200 mg PO TID PRN #30 cap PRN Reason: Cough Physician Discharge Instructions: OK TO DC IV AND DC HOME FOLLOW-UP WITH PRIMARY CARE PROVIDER IN 1-2 WEEKS FOLLOW-UP WITH Pulmonary for pulmonary function testing IN 1-2 WEEKS RETURN TO THE ER IF symptoms worsen CALL or TEXT DR. LOPEZ AT [phone] IF ANY QUESTIONS REGARDING HOSPITAL STAY. PLEASE CALL THE FLOOR AT [phone] IF ANY MEDICATION OR NURSING QUESTIONS. Patient presented with shortness of breath, and cough. Patient recently treated with prednisone and amoxicillin. Patient was admitted for further evaluation and treatment. CT scan revealed no pulmonary embolism or consolidation. Patient was negative for Covid, RSV. Sputum culture negative. Patient was seen and evaluated by pulmonology. Pulmonology suspects acute on chronic asthma. Patient condition has improved. At discharge patient will continue with prednisone 10 mg 1 pill twice daily for 7 days. Patient will continue with Advair 1 puff twice daily. Albuterol and Atrovent will be arranged to continue 3 times a day as needed for shortness of breath. Recommend follow-up with pulmonology within 1 week to follow-up hospitalization and to further address his condition. Patient with hypertension. Blood pressure medication stable. At discharge patient will continue with losartan 50 mg daily and hydrochlorothiazide 25 mg daily. Recommend to maintain blood pressure less than 130/80. Further adjustment can be done by his PCP. Patient had elevated blood sugar. Hemoglobin A1c obtained to evaluate for diabetes mellitus type 2. This is pending at discharge. Patient was started on Metformin during the hospitalization.. At discharge patient will continue with Metformin 500 mg daily. Recommend follow-up with PCP to further monitor and address. Recommend to monitor blood sugars at least twice daily. Recommend to maintain blood sugar less than 140 fasting and less than 200 for meals. Further adjustment in medication may be required. This can be done with the help of his PCP. Diet: ADA Activity: Fall precautions Followup: NONE,NONE [Primary Care Provider] - Time spent managing pt's care (in minutes): 55
[2021-10-18] MEDS: CEFTRIAXONE 1,000 MG in NA CHLORIDE 0.9% 50 ML IVPB SCH (09:00)
[2021-10-18] MEDS: ENOXAPARIN 40 MG/0.4 ML SQ SCH (09:00)
[2021-10-18 09:50] VITALS: TEMP 97.7
[2021-10-18] MEDS: hydroCHLOROthiazide 25 MG TAB PO SCH (10:07)
[2021-10-18] MEDS: AZITHROMYCIN IV 500 MG in NA CHLORIDE 0.9% 250 ML IVPB SCH (10:08)
[2021-10-18 10:57] VITALS: O2SAT 96
--- NOTE | 2021-10-18 12:14 | P.CNS ---
Date of Consult: 10/18/21 Primary Care Provider: [facility] Chief Complaint: acute bronchitis History of Present Illness: Patient is 66 years of age admitted with acute cough he had intermittent coughing episodes before this has been worse came here to the emergency room is feeling a little better also has some wheezing tightness he responded initially to a course of steroids and antibiotics treated at the clinic Allergies No Known Allergies Allergy (Verified 10/16/21 00:56) Home Medications: Losartan Potassium [Cozaar*] 50 mg PO DAILY 10/16/21 hydroCHLOROthiazide [Hydrochlorothiazide] 25 mg PO DAILY 10/16/21 Albuterol Neb [Proventil 0.083% Neb Soln] 2.5 mg NEB [id number] #60 amp 10/17/21 Benzonatate [Tessalon Perle*] 200 mg PO TID PRN #30 cap 10/17/21 Fluticasone/Salmeterol [Advair 250-50 Diskus] 1 each IH BID #1 disk.w.dev 10/17/21 Ipratropium Neb [Atrovent*] 0.5 mg NEB [id number] #60 amp 10/17/21 Metformin HCl 500 mg PO DAILY #30 tablet 10/17/21 Nebulizer Accessories [Aeroneb Go] 1 each MC DAILY #1 each 10/17/21 Nebulizer [Aeroneb Go Nebulizer] 1 each MC DAILY #1 each 10/17/21 hydroCHLOROthiazide [Hydrodiuril*] 25 mg PO DAILY #30 tab 10/17/21 predniSONE [Deltasone*] 10 mg PO BID #14 tab 10/18/21 - Past Medical/Surgical History Diabetic: No -: HTN -: foot surgery -: elbow surgery -: shoulder surgery -: hernia repair -: tonsillectomy - Family History Father Medical History: Heart disease, Hypertension Mother Medical History: Hypertension - Social History Alcohol use: Yes CD- Drugs: No Caffeine use: Yes Place of Residence: Home Review of Systems 10-point ROS is otherwise unremarkable Physical Examination Temp Pulse Resp BP Pulse Ox 97.7 F 81 18 149/71 H 97 10/18/21 08:00 10/18/21 08:00 10/18/21 08:00 10/18/21 08:00 10/18/21 08:00 General: Alert, Oriented x3 HEENT: Atraumatic Neck: Supple Respiratory: Clear to auscultation bilaterally Cardiovascular: No edema, Regular rate/rhythm - Problems (1) Persistent cough Current Visit: Yes Status: Acute Plan: Patient is 66 patient is 66 years of age admitted with an acute cough most likely he has underlying obstructive airways disease he does not smoke CT scan is a CT scan is unremarkable labs reviewed recommend discharge home on prednisone 10 twice daily for about a week in addition to Advair or Symbicort follow-up with me in 2 weeks vital signs are stable vital signs are stable
[2021-10-18 12:19] VITALS: BP 164/74
== END 2021-10-18 12:29 | disposition home or self-care (01) | DRG 202 ==
LOC: ER 19:40 → ERHOLD 22:36 → 4TH 23:36 → OBSVTOIN 10-17 11:12
PROVIDERS: ADMIT Hospitalist; ATTEND Family Medicine
DX: J20.9 Acute bronchitis, unspecified (principal); J45.901 Unspecified asthma with (acute) exacerbation; E87.6 Hypokalemia; I10 Essential (primary) hypertension; E11.65 Type 2 diabetes mellitus with hyperglycemia; E66.9 Obesity, unspecified; R05.3 Chronic cough; R09.02 Hypoxemia; Z68.38 Body mass index [BMI] 38.0-38.9, adult; Z79.52 Long term (current) use of systemic steroids; Z79.899 Other long term (current) drug therapy; Z20.822 Contact with and (suspected) exposure to COVID-19
CPT/HCPCS: 0241U; 36415; 71045; 71275; 80048; 80053; 80061; 80076; 82947; 83036; 83735; 83880; 84100; 84439; 84443; 84484; 85025; 85379; 85610; 87040; 87070; 87205; 93005; 94640; 94760; 99285; G0378; J0456; J1100; J1650; J2270; J2920; J2930; J3475; J3480; J7030; J7050; Q9967